=== PATIENT | male | born 1990 ===

== ENCOUNTER 2019-09-19 21:03 | Emergency (ER) | payer SELFPAY ==
[2019-09-19] MEDS ORDERED: CODEINE 30MG/APAP 300MG TAB ONE (21:37)
[2019-09-19] MEDS ORDERED: FLUORESCEIN SODIUM 1 MG/WRAP ONE ×2 (21:37→22:52)
[2019-09-19] MEDS ORDERED: TETRACAINE HCL 0.5% 4ML OPTH ONE (21:37)
[2019-09-19] MEDS ORDERED: TETANUS & DIPHTHERIA TOX,ADULT 0.5 ML VIAL ONE (21:38)
--- NOTE | 2019-09-19 22:51 | ER ---
Nurse's Notes [facility] Name: Prasad Alba Age: 29 yrs Sex: Male : 1990 Arrival Date: 09/19/2019 Time: 21:07 Bed 28 Private MD: Diagnosis: Foreign body in cornea, right eye;Injury of conjunctiva and corneal abrasion with foreign body, right eye Presentation: 09/19 21:08 Presenting complaint: Patient states: Something got in his eye 2 days ago, he still aj1 feels like he has something in his eye and the pain is radiating backwards now into his head. Patient reports that when the light hits his eye it makes his vision blurry. but it isn't blurry all the time. Transition of care: patient was not received from another setting of care. Mechanism of Injury: unknown. The patient denies any loss of vision. Onset of symptoms was 2019. Risk Assessment: Do you want to hurt yourself or someone else? Patient reports no desire to harm self or others. Initial Sepsis Screen: Does the patient meet any 2 criteria? No. Patient's initial sepsis screen is negative. Does the patient have a suspected source of infection? No. Patient's initial sepsis screen is negative. Care prior to arrival: None. 21:08 Method Of Arrival: Ambulatory aj 21:08 Acuity: KYLIE 4 aj1 Triage Assessment: 21:11 General: Appears in no apparent distress. uncomfortable, Behavior is calm, cooperative, aj1 appropriate for age. Pain: Complains of pain in right eye Pain currently is 10 out of 10 on a pain scale. EENT: Sclera/Cornea are reddened in outer aspect of conjuctiva of right eye and inner aspect of conjuctiva of right eye. Neuro: Level of Consciousness is awake, alert, obeys commands. Cardiovascular: Patient's skin is warm and dry. Respiratory: Airway is patent Respiratory effort is even, unlabored, Respiratory pattern is regular, symmetrical. Historical: - Allergies: 21:11 No Known Allergies; aj1 - Home Meds: 21:11 None [Active]; aj1 - PMHx: 21:11 None; aj1 - PSHx: 21:11 None; aj1 - Immunization history:: Flu vaccine is not up to date. - Social history:: Smoking status: Patient/guardian denies using tobacco. - Ebola Screening: : Patient denies travel to an Ebola-affected area in the 21 days before illness onset. Assessment: 21:18 General: Appears in no apparent distress. comfortable, well groomed, well developed, ra1 well nourished, Behavior is calm, cooperative, appropriate for age, Smells of Reports Denies. Neuro: Reports blurred vision right eye headache in right Denies. Cardiovascular: Heart tones S1 S2 present. Respiratory: Breath sounds are clear bilaterally. GI: No signs and/or symptoms were reported involving the gastrointestinal system. : No signs and/or symptoms were reported regarding the genitourinary system. EENT: Eyes without exudate noted. Reports blurred vision right eye. Derm: No signs and/or symptoms reported regarding the dermatologic system. Musculoskeletal: No signs and/or symptoms reported regarding the musculoskeletal system. 22:21 Reassessment: Patient appears in no apparent distress at this time. Patient and/or ra1 family updated on plan of care and expected duration. Pain level reassessed. Patient is alert, oriented x 3, equal unlabored respirations, skin warm/dry/pink. Patient states feeling better. Patient states symptoms have improved. Vital Signs: 21:11 BP 128 / 86; Pulse 71; Resp 18; Temp 98.1; Pulse Ox 100% on R/A; Weight 66.22 kg (R); aj1 Pain 10/10; 22:30 BP 141 / 87; Pulse 64; Resp 16; Temp 98.1; Pulse Ox 100% on R/A; Pain 0/10; ra1 23:09 BP 140 / 81; Pulse Ox 99% on R/A; Pain 0/10; ra1 Visual Acuity: 21:43 Left Eye Visual acuity 20/20, ; Right Eye Visual acuity 20/50, ; Without Lenses; jp3 patient complained of burning in the right eye (affected eye). states "feels like something is in my eye on the inside portion" ED Course: 21:07 Patient arrived in ED. jg7 21:10 Triage completed. aj1 21:11 Arm band placed on Patient placed in an exam room. aj1 21:16 Mike Ortiz, PAUL is Primary Nurse. ra1 21:16 Chris Brand NP is PHCP. pm1 21:16 Luis Madrid MD is Attending Physician. pm1 21:44 Safety checks: Family/friend present: yes. Bed in low position. Call light in reach. jp3 Verbal reassurance given. Lights dimmed. Pulse ox on. NIBP on. 21:45 Patient maintains SpO2 saturation greater than 95% on room air. jp3 22:50 Otto Aldana MD is Referral Physician. 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 Exp: ra1 07/30/2021. Lot #: [id number]. } Route: IM; Site: left deltoid; 23:12 Follow up: Response: No adverse reaction ra1 23:05 Drug: Tobramycin Drops (0.3 %) 2 drops {Note: ok to given tobramycin 0.3% opth ra1 ointment.} Route: Ophthalmic; Site: right eye; 23:13 Follow up: Response: No adverse reaction ra Outcome: 22:50 Discharge ordered by MD. pm1 23:36 Patient left the ED. iw Signatures: Bri Lbaoy RN RN aj1 Sayda Barron RN RN iw Chris Brand, KEITH DINING MANAGER pm1 Suraj Hernández jp3 Mike Ortiz RN RN ra1 Aggie Diaz jg7
--- NOTE | 2019-09-19 22:52 | EDPHYS ---
Physician Documentation [facility] Name: Prasad Alba Age: 29 yrs Sex: Male : 1990 Arrival Date: 09/19/2019 Time: 21:07 Bed 28 Private MD: ED Physician Luis Madrid HPI: 09/19 21:22 This 29 yrs old Male presents to ER via Ambulatory with complaints of Right Eye Pain. pm1 21:22 The patient is experiencing foreign body sensation, pain, redness, to the right eye, pm1 caused by debris, Patient was sharpening axe without eye protection. Onset: The symptoms/episode began/occurred 2 day(s) ago. Duration: the symptoms are continuous. Aggravated by light, opening eye, rubbing, Alleviated by covering eye. Associated signs and symptoms: Pertinent negatives: fever. Patient does not utilize any form of vision correction. Severity of symptoms: in the emergency department the symptoms are worse. The patient has not experienced similar symptoms in the past. The patient has not recently seen a physician. Historical: - Allergies: 21:11 No Known Allergies; aj1 - Home Meds: 21:11 None [Active]; aj1 - PMHx: 21:11 None; aj1 - PSHx: 21:11 None; aj1 - Immunization history:: Flu vaccine is not up to date. - Social history:: Smoking status: Patient/guardian denies using tobacco. - Ebola Screening: : Patient denies travel to an Ebola-affected area in the 21 days before illness onset. ROS: 22:38 Constitutional: Negative for fever, chills, and weight loss. pm1 22:38 Cardiovascular: Negative for chest pain, palpitations, and edema, Respiratory: Negative for shortness of breath, cough, wheezing, and pleuritic chest pain, Abdomen/GI: Negative for abdominal pain, nausea, vomiting, diarrhea, and constipation, Back: Negative for injury and pain, MS/Extremity: Negative for injury and deformity, Skin: Negative for injury, rash, and discoloration, Neuro: Negative for headache, weakness, numbness, tingling, and seizure. 22:38 Eyes: Positive for blurry vision, foreign body sensation, pain, redness, of the right eye, Negative for discharge. 22:38 All other systems are negative. Exam: 22:38 Eyes: Corneas: foreign body, at 6 o'clock, a piece of metal, a fluorescein strip pm1 employed to appreciate the findings. 22:38 Eyes: Periorbital structures: appear normal, Pupils: no acute changes, Extraocular pm1 movements: intact throughout, Conjunctiva: injected, in the right eye, Corneas: abrasion, that is small, on the right, at 6 o'clock, Sclera: no appreciated abnormality, Anterior chamber: normal, no hyphema, Lids and lashes: appear normal. 22:38 Visual Acuity: I have reviewed the nursing documentation. pm1 22:38 Constitutional: This is a well developed, well nourished patient who is awake, alert, and in no acute distress. Head/Face: Normocephalic, atraumatic. Chest/axilla: Normal chest wall appearance and motion. Nontender with no deformity. No lesions are appreciated. Cardiovascular: Regular rate and rhythm with a normal S1 and S2. No gallops, murmurs, or rubs. Normal PMI, no JVD. No pulse deficits. Respiratory: Lungs have equal breath sounds bilaterally, clear to auscultation and percussion. No rales, rhonchi or wheezes noted. No increased work of breathing, no retractions or nasal flaring. Skin: Warm, dry with normal turgor. Normal color with no rashes, no lesions, and no evidence of cellulitis. MS/ Extremity: Pulses equal, no cyanosis. Neurovascular intact. Full, normal range of motion. 22:38 Neuro: Orientation: is normal, Motor: is normal, moves all fours. Vital Signs: 21:11 BP 128 / 86; Pulse 71; Resp 18; Temp 98.1; Pulse Ox 100% on R/A; Weight 66.22 kg (R); aj1 Pain 10/10; 22:30 BP 141 / 87; Pulse 64; Resp 16; Temp 98.1; Pulse Ox 100% on R/A; Pain 0/10; ra1 23:09 BP 140 / 81; Pulse Ox 99% on R/A; Pain 0/10; ra1 Visual Acuity: 21:43 Left Eye Visual acuity 20/20, ; Right Eye Visual acuity 20/50, ; Without Lenses; jp3 patient complained of burning in the right eye (affected eye). states "feels like something is in my eye on the inside portion" MDM: 21:17 Patient medically screened. [facility] 22:44 Physician consultation: Otto Aldana MD was called at 22:49, was contacted at 22:49, pm1 regarding patient's condition, and will see patient in office, tomorrow, 11 AM. 22:49 Data reviewed: vital signs. Data interpreted: Pulse oximetry: on room air is 100 %. pm1 Interpretation: normal. Counseling: I had a detailed discussion with the patient and/or guardian regarding: the historical points, exam findings, and any diagnostic results supporting the discharge/admit diagnosis, the need for outpatient follow up, an opthalmologist. 09/19 21:22 Order name: Visual Acuity; Complete Time: 21:45 pm1 09/19 21:22 Order name: Eye Tray; Complete Time: 21:45 pm1 09/19 21:22 Order name: Fluoresene Opth strip; Complete Time: 21:45 pm1 09/19 22:51 Order name: Misc. 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 Exp: ra1 07/30/2021. Lot #: [id number]. } Route: IM; Site: left deltoid; 23:12 Follow up: Response: No adverse reaction ra1 23:05 Drug: Tobramycin Drops (0.3 %) 2 drops {Note: ok to given tobramycin 0.3% opth ra1 ointment.} Route: Ophthalmic; Site: right eye; 23:13 Follow up: Response: No adverse reaction ra1 Disposition: 09/19/19 22:50 Discharged to Home. Impression: Foreign body in cornea, right eye, Injury of conjunctiva and corneal abrasion with foreign body, right eye. - Condition is Stable. - Discharge Instructions: Corneal Abrasion, Eye Foreign Body. - Prescriptions for tobramycin 0.3 % Ophthalmic drops - instill 2 drop by OPHTHALMIC route every 4 hours for 7 days; 10 milliliter. Tylenol- Codeine #3 300-30 mg Oral Tablet - take 2 tablets by ORAL route every 6 hours As needed; 20 tablet. - Medication Reconciliation Form, Thank You Letter, Antibiotic Education, Prescription Opioid Use form. - Follow up: Otto Aldana MD; When: Tomorrow at 11AM; Reason: Recheck today's complaints, Continuance of care, Re-evaluation by your physician. - Problem is new. - Symptoms have improved. Addendum: 09/21/2019 08:12 Co-signature as Attending Physician, Luis Madrid MD I agree with the assessment and c good plan of care. Signatures: Bri Laboy RN RN aj1 Luis Madrid MD MD cha Williams, Irene, RN RN iw Chris Brand, KEITH PAINTER BARREL pm1 Mike Ortiz RN RN ra1 Corrections: (The following items were deleted from the chart) 09/19 23:02 22:50 09/19/2019 22:50 Discharged to Home. Impression: Foreign body in cornea, right pm1 eye. Condition is Stable. Forms are Medication Reconciliation Form, Thank You Letter, Antibiotic Education, Prescription Opioid Use. Follow up: Otto Aldana; When: Tomorrow; Reason: Recheck today's complaints, Continuance of care, Re-evaluation by your physician. Problem is new. Symptoms have improved. pm1 23:14 23:02 09/19/2019 22:50 Discharged to Home. Impression: Foreign body in cornea, right pm1 eye; Injury of conjunctiva and corneal abrasion with foreign body, right eye. Condition is Stable. Discharge Instructions: Eye Foreign Body. Prescriptions for tobramycin 0.3 % Ophthalmic drops - instill 2 drop by OPHTHALMIC route every 4 hours for 7 days; 10 milliliter, Tylenol-Codeine #3 300-30 mg Oral Tablet - take 2 tablets by ORAL route every 6 hours As needed; 20 tablet. and Forms are Medication Reconciliation Form, Thank You Letter, Antibiotic Education, Prescription Opioid Use. Follow up: Otto Aldana; When: Tomorrow; Reason: Recheck today's complaints, Continuance of care, Re-evaluation by your physician. Problem is new. Symptoms have improved. pm1 23:36 23:14 09/19/2019 22:50 Discharged to Home. Impression: Foreign body in cornea, right iw eye; Injury of conjunctiva and corneal abrasion with foreign body, right eye. Condition is Stable. Discharge Instructions: Eye Foreign Body, Corneal Abrasion. Prescriptions for tobramycin 0.3 % Ophthalmic drops - instill 2 drop by OPHTHALMIC route every 4 hours for 7 days; 10 milliliter, Tylenol-Codeine #3 300-30 mg Oral Tablet - take 2 tablets by ORAL route every 6 hours As needed; 20 tablet. and Forms are Medication Reconciliation Form, Thank You Letter, Antibiotic Education, Prescription Opioid Use. Follow up: Otto Aldana; When: Tomorrow at 11AM; Reason: Recheck today's complaints, Continuance of care, Re-evaluation by your physician. Problem is new. Symptoms have improved. pm1
[2019-09-19] MEDS ORDERED: TOBRAMYCIN SULF 0.3% OPTH OINT ONE (23:00)
[2019-09-19] MEDS ORDERED: GENTAMICIN 0.3% OPTH DROP 5ML ONE (23:01)
[2019-09-20 01:25] VITALS: TEMP 98.1
[2019-09-20 01:28] VITALS: BP 140/81; O2SAT 99
== END 2019-09-19 23:36 | disposition home or self-care (01) ==
LOC: ER 21:03
DX: T15.01XA Foreign body in cornea, right eye, initial encounter (principal); Z23 Encounter for immunization
CPT/HCPCS: 90471; 90714; 99284